=== PATIENT | male | born 1960 | race Caucasian/White ===

== ENCOUNTER 2017-04-25 21:40 | Emergency (ER) | payer OTHER ==
[~2017-04-25 21:40] MED LIST: LIPITOR; PRILOSEC; SYNTHROID; TOPROL XL
== END 2017-04-26 00:34 | disposition home or self-care (01) ==
LOC: SED 21:40
DX: S71.112A Laceration without foreign body, left thigh, initial encounter (principal); I10 Essential (primary) hypertension; E78.5 Hyperlipidemia, unspecified; K21.9 Gastro-esophageal reflux disease without esophagitis; Z88.8 Allergy status to other drugs, medicaments and biological substances; Z23 Encounter for immunization; W54.0XXA Bitten by dog, initial encounter; Y92.9 Unspecified place or not applicable
CPT/HCPCS: 12001; 90471; 90715; 99283

== ENCOUNTER 2017-05-05 11:38 | Emergency (ER) | payer OTHER | END 2017-05-05 11:56 | disposition home or self-care (01) | LOC: SED 11:38 | DX: S71.112A Laceration without foreign body, left thigh, initial encounter (principal); K21.9 Gastro-esophageal reflux disease without esophagitis; E78.00 Pure hypercholesterolemia, unspecified; R03.0 Elevated blood-pressure reading, without diagnosis of hypertension; W45.8XXA Other foreign body or object entering through skin, initial encounter | CPT/HCPCS: 99281 ==